=== PATIENT | female | born 1985 | race Caucasian/White ===

== ENCOUNTER → 2018-08-06 10:30 | Outpatient (CLI) | payer OTHER, SELFPAY ==
[2018-08-12 13:33] LABS: HPV Reflexed? NOT INDICATED
== END ==
PROVIDERS: Family Provider Internal Medicine; PCP Internal Medicine; Visit Provider Obstetrics & Gynecology
DX: Z12.4 Encounter for screening for malignant neoplasm of cervix (principal)
CPT/HCPCS: 87624; 88175; G0145

== ENCOUNTER → 2018-12-10 06:47 | Outpatient (CLI) | payer OTHER, SELFPAY ==
[2017-09-03 11:11] VITALS: BMI 20.9
[2018-12-10 07:58] LABS: hCG Titer Quant., Serum 1518 mIU/mL (<9 non-preg)
== END ==
PROVIDERS: Family Provider Internal Medicine; PCP Internal Medicine
DX: Z32.00 Encounter for pregnancy test, result unknown (principal)
CPT/HCPCS: 36415; 84702

== ENCOUNTER → 2018-12-17 11:09 | Outpatient (CLI) | payer OTHER, SELFPAY ==
[2018-12-17 12:47] LABS: hCG Titer Quant., Serum 11967 mIU/mL (<9 non-preg)
== END ==
PROVIDERS: Family Provider Internal Medicine; PCP Internal Medicine
DX: Z32.00 Encounter for pregnancy test, result unknown (principal)
CPT/HCPCS: 36415; 84702

== ENCOUNTER → 2018-12-24 14:58 | Outpatient (CLI) | payer OTHER, SELFPAY ==
[2017-09-03 11:11] VITALS: BMI 20.9
[2018-12-24 17:22] LABS: Chlamydia Trachomatis by PCR Negative (Negative); Neisserai gonorrhoeae by PCR Negative (Negative); Probe Check PASS; Sample Adequacy Control PASS; Specimen Processing Control PASS
== END ==
PROVIDERS: Visit Provider Obstetrics & Gynecology
DX: Z11.3 Encounter for screening for infections with a predominantly sexual mode of transmission (principal)
CPT/HCPCS: 87491; 87591

== ENCOUNTER → 2019-01-26 | Outpatient (CLI) | payer OTHER, SELFPAY ==
--- NOTE | 2019-01-26 15:54 | US_ITS ---
STUDY: FIRST TRIMESTER OBSTETRICAL ULTRASOUND REASON FOR EXAM: Female, 33 years old. Dating LMP: 11/07/2018 TECHNIQUE: Transabdominal TECHNICAL QUALITY: Adequate. PRIOR ULTRASOUND: None. FINDINGS: There is visualization of a single gestational sac in a normal intrauterine position. The gestational sac shape is within normal limits. There is a visualized yolk sac. The yolk sac measures 6 mm. There is visualization of the placenta. There is visualization of a live embryo. The crown-rump length (CRL) measures 5.3 cm, indicating an estimated gestational age (EGA) of 12 weeks, 0 days. There is demonstrated cardiac activity with a heart rate of 156 bpm. The estimated gestation age (EGA) by LMP is 11 weeks, 3 days. The estimated date of delivery (DOROTHEA) by LMP is 08/14/2019. The estimated gestation age (EGA) by US is 12 weeks, 0 days. The estimated date of delivery (DOROTHEA) by US is 08/10/2019. The uterus measures 10.9 x 9.4 x 9.3 cm. There is no demonstrated uterine fibroid. The cervix is closed. The right ovary is not seen. The left ovary measures 2.9 x 2.3 x 1.5 cm. There is no left ovarian cyst. There is no visualized left adnexal mass or complex lesion. There is no fluid in the cul de sac. Posterior and inferior subchorionic hemorrhage measuring approximately 3 x 2 cm. US/Init OB < 14Wks US IMPRESSION: Intrauterine gestation with sonographic age of 12 weeks 0 days. Cervix is closed. Positive cardiac activity. Posterior and inferior subchorionic hemorrhage measuring approximately 3 x 2 cm. Electronically Signed: Ayaz Keller MD at 11:27 EDT Tel , Service support ,
[2019-01-26 16:34] LABS: Color, Urine Yellow (Yellow); Glucose, Dipstick 100 mg/dl (Normal); Ketone-Dipstick 5 mg/dl (Negative); Leukocyte Esterase-Dipstick 25 /ul (Negative); Nitrite-Dipstick Negative (Negative); Occult Blood-Urine 10 /ul (Negative); Protein-Dipstick 15 mg/dl (Negative); Urine Bilirubin Dipstick Negative (Negative); Urine Clarity Clear (Clear); Urine Urobilinogen Normal (Normal)
[2019-01-26 16:38] LABS: Absolute Lymphocyte Count 1.59 X10^3/ul (0.83-4.51); Absolute Neutrophil Count 7.1 X10^3/uL (2.0-7.7); Basophil# 0.05 X10^3/uL; Basophil% 0.5 % (0-1); Eosinophil# 0.17 X10^3/uL; Eosinophils% 1.8 % (0-5); Hematocrit 40.1 % (37-47); Lymphocyte # 1.59 X10^3/ul (4.0); Lymphocyte % 16.7 % (19-41); Mean Corp Hgb Conc 32.4 g/gl (32-36); Mean Corpuscular Hgb 29.5 pg (27.0-32.0); Mean Corpuscular Volume 90.9 fL (81-99); Monocyte# 0.59 X10^3/uL; Monocyte% 6.2 % (0-10); Neutrophil # 7.11 X10^3/uL (2.7-7.7); Neutrophil % 74.6 % (47-70); Platelet Count 335 K/mm3 (150-450); RBC Distribution Width CV 14.6 % (11.6-14.6); RBC Distribution Width SD 48.6 fl (35.1-43.9); Red Blood Count 4.41 M/mm3 (4.2-5.4); White Blood Count 9.5 K/mm3 (4.4-11.0)
[2019-01-26 16:45] LABS: POSITIVE COUNT NO; POSITIVE DIFFERENTIAL NO; POSITIVE MORPHOLOGY NO
[2019-01-26 16:48] LABS: Thyroid Stim Hormone (TSH) 0.11 uIU/mL (0.358-3.74)
[2019-01-26 16:56] LABS: Amphetamine Urine VISTA NEGATIVE (<1000 ng/mL); Barbiturate Urine VISTA NEGATIVE (< 200 ng/mL); Benzodiazepine Urine VISTA NEGATIVE (< 200 ng/mL); Cocaine Urine VISTA NEGATIVE (< 300 ng/mL); Ecstacy Urine VISTA NEGATIVE (< 500 ng/mL); Methadone Urine VISTA NEGATIVE (< 300 ng/mL); PCP Urine VISTA NEGATIVE (< 25 ng/mL); THC Urine VISTA NEGATIVE (< 50 ng/mL); Vista UDS pH Range 5
[2019-01-26 17:29] LABS: HIV - WCH Non-Reactive (Nonreactive); Rubella IgG 188.9 IU/mL
[2019-01-28 11:09] LABS: HEPATITIS B SURFACE AG Negative (Negative); Hep C Antibodies <0.1 s/co ratio (0.0-0.9)
[2019-01-30 02:51] LABS: Prenatal RPR NONREACTIVE (NONREACTIVE)
== END | disposition home or self-care (01) ==
PROVIDERS: Family Provider Internal Medicine; PCP Internal Medicine; Referring Provider Obstetrics & Gynecology; Visit Provider Obstetrics & Gynecology
DX: Z34.81 Encounter for supervision of other normal pregnancy, first trimester (principal)
CPT/HCPCS: 36415; 76801; 80307; 81002; 84443; 85025; 86703; 86762; 86803; 87340

== ENCOUNTER → 2019-03-25 | Outpatient (CLI) | payer OTHER, SELFPAY ==
--- NOTE | 2019-03-25 15:03 | US_ITS ---
STUDY: SECOND AND THIRD TRIMESTER OBSTETRICAL ULTRASOUND REASON FOR EXAM: Female, 34 years old. LMP: TECHNIQUE: TECHNICAL QUALITY: Adequate. PRIOR ULTRASOUND: None. FINDINGS: There is a single intrauterine fetus. The fetus is in a cephalic presentation. There is demonstrated cardiac activity with a heart rate of bpm. There is a normal amniotic fluid volume. The largest amniotic fluid pocket measures cm. The amniotic fluid index (LOLLY) is cm. The placenta is fundal in location. Multiple placental venous lakes are noted. A large venous andrew versus subchorionic placental cyst is noted superiorly measuring 3.0 x 2.9 x 5.2 cm. A similar finding is present inferiorly measuring 5 x 4.3 cm. There are Grade 0 placental changes. The cervix measures 3.6 cm in length. The bilateral adnexal regions are normal. BIOMETRY: BPD: 4.7 cm: 20 weeks, 2 days HC: 17.8: 20 weeks, 2 days AC: 15.4: 20 weeks, 5 days FL: 3.2: 20 weeks, 0 days CI: 80% FL/BPD: 68% FL/HC: FL/AC: 21% HC/AC: age by current US: 20 weeks, 3 days. DOROTHEA by current US: 08/09/2019. Estimated weight: 346 grams, +/- 50 grams, 79 %. age by prior US: 20 weeks, 2 days. DOROTHEA by prior US: 08/10/2019. Age by LMP: 19 weeks, 5 days. DOROTHEA by LMP: 08/14/2019. ANATOMY: Gender: Male Cranium: Normal lateral ventricles. Normal choroid plexus. Normal cerebellum. Normal cisterna magna. Normal face, nose and lips. Chest: Normal 4-chamber heart. Abdomen/Pelvis: Normal diaphragm. Normal stomach. Normal abdominal wall. Normal cord insertion. Normal 3 vessel cord. Normal kidneys. Normal bladder. Spine: Normal cervical spine. Normal thoracic spine. Normal lumbar spine. Normal sacrum. Extremities: Normal bilateral upper extremities. Normal bilateral lower extremities. US/OB Anatomy Scan IMPRESSION: Intrauterine gestation with sonographic age of 20 weeks 3 days. Cervix is closed. Positive cardiac activity. Normal amniotic fluid volume. Multiple placental venous lakes are noted. A large venous andrew versus subchorionic placental cyst is noted superiorly measuring 3.0 x 2.9 x 5.2 cm. A similar finding is present inferiorly measuring 5 x 4.3 cm. Electronically Signed: Ayaz Keller MD at 8:16 EDT Tel , Service support ,
== END | disposition home or self-care (01) ==
PROVIDERS: Family Provider Internal Medicine; PCP Internal Medicine; Referring Provider Obstetrics & Gynecology; Visit Provider Obstetrics & Gynecology
DX: Z34.82 Encounter for supervision of other normal pregnancy, second trimester (principal)
CPT/HCPCS: 76805

== ENCOUNTER → 2019-05-21 | Outpatient (CLI) | payer OTHER, SELFPAY ==
[2019-05-21 13:46] LABS: Glucose Challenge Gest 1H 50g 111 mg/dL (70-140)
[2019-05-21 13:48] LABS: Hematocrit 31.4 % (37-47); Hemoglobin 10.1 g/dL (12.0-15.0); Mean Corp Hgb Conc 32.2 g/dL (32-36); Mean Corpuscular Hgb 28.9 pg (27.0-32.0); Mean Platelet Vol. 9.2 fl (6.2-12.0); Platelet Count 327 K/mm3 (150-450); RBC Distribution Width CV 13.8 % (11.6-14.6); RBC Distribution Width SD 45.1 fl (35.1-43.9); Red Blood Count 3.49 M/mm3 (4.2-5.4); White Blood Count 11.3 K/mm3 (4.4-11.0)
== END | disposition home or self-care (01) ==
LOC: LABSPEC 11:06 → WOBLAB 11:07
PROVIDERS: Visit Provider Obstetrics & Gynecology
DX: Z34.83 Encounter for supervision of other normal pregnancy, third trimester (principal)
CPT/HCPCS: 36415; 82950; 85027

== ENCOUNTER → 2019-06-18 | Outpatient (CLI) | payer OTHER, SELFPAY ==
[2019-06-18 11:05] LABS: Free T3 2.6 pg/mL (2.18-3.98); T4 Free Direct 0.92 ng/dL (0.76-1.46); Thyroid Stim Hormone (TSH) 1.07 uIU/mL (0.358-3.74)
== END | disposition home or self-care (01) ==
LOC: WOBLAB 09:10
PROVIDERS: Visit Provider Obstetrics & Gynecology
DX: Z34.83 Encounter for supervision of other normal pregnancy, third trimester (principal); Z86.39 Personal history of other endocrine, nutritional and metabolic disease
CPT/HCPCS: 36415; 84439; 84443; 84481

== ENCOUNTER 2019-08-07 05:35 | Inpatient (IN) | payer OTHER, SELFPAY ==
[2017-09-03 11:11] VITALS: BMI 20.9
--- NOTE | 2019-08-03 18:30 | HP.PCM_ITS ---
History and Physical Date of Admission: 08/07/19 OB HISTORY AND PHYSICAL EXAMINATION History of this : 34 yo female Ab0 with EDC 08/14/2019 by 6 weeks 5 days Ultrasound, presents to Labor and Delivery for planned repeat C section at 39 wk EGA. care remarkable for - 1.) Anemic Ferrous sulfate RX given. 2.) Prior CS, --plan repeat 3.) Wants cf-DNA 4.) Pt born with bilateral clubbed feet 5.) IVF . On estrace and progesterone injections through 10 wk EGA. PAST HISTORY: Breast/Ovarian/Colon Cancers - Maternal Grandmother had Breast Cancer approximately age 60-70 and Paternal Grandmother had Colon Cancer approximately age 60-70 Infections - Chicken pox and as child Illnesses - depression, anorexia - age 15, ADD and (d/c Adderall after IVF) Accidents - no injuries of consequence History of Abnormal PAPS - Denies Hospitalizations - see surgery SURGICAL HISTORY: 1. 09/02/2017 [facility] and A 2. Lasic 2007 3. IVF 2015 4. 02/09/2017 Alphonso Lugo MD and Dr Rafiq Wilcox MENSTRUAL HISTORY: LMP Known?- DefiniteAmount/Duration - 4-5 DAYS, Regularity - Regular, Frequency - 28 days, LMP - 11/04/18, Age Onset Menarche - 13 PAST PREGNANCIES: Total Pregnancies - 2; Full Term Pregnancies - 1; Premature - 0; Abortions, Induced - 0; Abortions, Spontaneous - 0; Ectopics - 0; Multiple Births - 0; Living Children - 1 FAMILY HISTORY: MaternalGrandparent - Ischemic heart disease; MaternalGrandparent - Age 63, Carcinoma of breast; PaternalGrandparent - Ischemic heart disease; SOCIAL HISTORY: Alcohol Use - denies drinking Smoking - denies smoking Diet - vegetarian and since 2000 Lifestyle - moderate stress lifestyle and Exercise - active Employer - 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 Illicit Drug Use - denies use of street drugs Sexual Activity - Residence - lives with Hours Worked - 40 hours per week Spouse-Sig Other Name - Bakari Jason Spouse-Sig Other Occupation - Speech Language Pathologist - [employer] Spouse-Sig Other Phone No - [facility] [id number], Children Name(s) - Josr Villegas ('17) Control - Allergies: Vicodin Medications: During - + DHA 28 mg iron- 975 mcg-200 mg combo pack; Zofran 8 mg tablet; ferrous sulfate 325 mg (65 mg iron) tablet and estrace 2 mg tabs three daily; weekly Progesterone injections through 10 wks Review of Systems: Non-contributory PHYSICAL EXAMINATION General Appearance: 34 yo female in no acute distress Vital Signs: AF, VSS Lungs: regular rate and rhythm. Breasts: deferred Abdomen: gravid Pelvis: deferred. Presentation: cephalic Size: AGA Movement: present Heart: present Impression /Plan: Intrauterine . 39 wk EGA with hx of prior C section presents for planned repeat C section. Admit for delivery by C section. Declined bilateral tubal ligation.
[2019-08-07] VITALS (24 sets, daily range): BP systolic 102–146; BP diastolic 54–79; PULSE 80–105; RESP 12–20; TEMP 36.6–37.7; O2SAT 93–99; BMI 28.8
[2019-08-07] MEDS: Lactated Ringers 1,000 ML 999 ML IV (05:50)
[2019-08-07 06:05] LABS: Absolute Lymphocyte Count 2.37 X10^3/uL (0.83-4.51); Absolute Neutrophil Count 8.8 X10^3/uL (2.0-7.7); Basophil# 0.08 X10^3/uL; Basophil% 0.6 % (0-1); Eosinophils% 1.6 % (0-5); Hematocrit 31.8 % (37-47); Hemoglobin 10.2 g/dL (12.0-15.0); Lymphocyte # 2.37 X10^3/ul (4.0); Lymphocyte % 18.9 % (19-41); Mean Corp Hgb Conc 32.1 g/dL (32-36); Mean Corpuscular Hgb 28.1 pg (27.0-32.0); Mean Corpuscular Volume 87.6 fL (81-99); Mean Platelet Vol. 9.6 fl (6.2-12.0); Monocyte# 0.95 X10^3/uL; Monocyte% 7.6 % (0-10); NRBC Flagged by Analyzer 0 % (0-5); Neutrophil # 8.83 X10^3/uL (2.7-7.7); Neutrophil % 70.4 % (47-70); Platelet Count 303 K/mm3 (150-450); RBC Distribution Width CV 15.7 % (11.6-14.6); RBC Distribution Width SD 50.4 fl (35.1-43.9); Red Blood Count 3.63 M/mm3 (4.2-5.4); White Blood Count 12.5 K/mm3 (4.4-11.0)
[2019-08-07] MEDS: Lactated Ringers 1,000 ML 150 ML IV (06:51)
[2019-08-07] MEDS: Sodium Citrate/Citric Acid 30 ML UDC PO (07:21)
--- NOTE | 2019-08-07 07:24 | PCM.DCCSEC ---
Discharge Diet: No Restrictions Discharge Activity: May Shower, May Take a Tub Bath Return to work on:: 10/05/19 May resume sexual activity in: 4-6 weeks Lifting Restrictions: 20 pounds Additional Activity Instructions:: Nothing in the vagina for 4-6 weeks. You may return to work/school in 6 weeks. Change Dressing in (Days):: 14 Remove Dressing in (days):: 14 Additional Instructions: If you experience any of the following, contact your healthcare provider. Bleeding that soaks a pad every hour for 2 hours Fever 100.4 or higher Unrelieved incision or abdominal pain Swelling, redness, discharge or bleeding from your incision Problems urinating (including inability to urinate or burning while urinating). Visual changes Severe headache Flu-like symptoms Pain or redness in one of both of your breasts Pain, warmth, tenderness or swelling in your legs, especially the calf area Frequent nausea and vomiting Symptoms of depression or anxiety If you experience any of the following, call 911 or go to the nearest Emergency Room. Chest pain Problems breathing Seizure activity Partial or complete paralysis of a body part, slurred speech, weakness or drooping of the face, or a sudden inability to walk or hold your balance Allergies/Adverse Reactions: Allergies cefaclor [From Ceclor] Allergy (Verified 08/28/17 10:13) Rash hydrocodone [From Vicodin] Adverse Reaction (Verified 08/28/17 10:13) Nausea promethazine [From Phenergan] Adverse Reaction (Verified 08/28/17 10:23) RESTLESS LEGS TIDE DETERGENT Allergy (Uncoded 08/28/17 10:13) Shortness of breath anaphylaxis Medications to take at Discharge Docusate Sodium [Colace] 100 mg PO BID #30 cap 08/07/19 Ibuprofen [Ibu] 600 mg PO Q6H PRN PRN #30 tab 08/07/19 Iron 65 mg PO BID 08/07/19 Oxycodone [Oxyir] 5 mg PO Q6H PRN PRN 4 Days #15 tablet 08/07/19 Pnv No.103/Folic/Om3s/Fish Oil [ Gummies] 2 gum PO BID 08/07/19 The following prescriptions were given: Docusate Sodium [Colace] 100 mg PO BID #30 cap Transmission Status: Pending to [facility] Ibuprofen [Ibu] 600 mg PO Q6H PRN PRN #30 tab PRN Reason: Pain Score 4-5/10 Transmission Status: Pending to [facility] Oxycodone [Oxyir] 5 mg PO Q6H PRN PRN 4 Days #15 tablet PRN Reason: Mod-Severe Pain (4-10/10) Transmission Status: Sent to [facility] Follow-Up: Call to make an appointment with your doctor for an incision check in 1-2 weeks. You will also need a 6 week post- follow up appointment. Test results from this visit will be discussed in further detail at your follow-up appointment, if applicable. Please Follow Up With: Devin Lundy MD - [phone] When: Call to make an appointment for an incision check in 2 weeks.
[2019-08-07] MEDS: Cefazolin 2 GM in 0.9% Normal Saline 100 ML IV (07:29)
--- NOTE | 2019-08-07 08:29 | PCM.OPRPT ---
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 planned repeat C section Post-Operative Diagnosis: same Indications: 39 wk prior C/S Indications for : Repeat Elective Description of Procedure: Findings: At amniotomy, clear fluid was noted. Hall viable male in vertex presentation. Apgars 9/9, Baby weight: 8# 3.5 oz There was a normal appearing uterus, fallopian tubes and ovaries bilaterally. There were minimal filmy adhesions between the bladder and lower uterine segment, and between uterus and posterior surface of anterior abdominal wall. PATH: Routine cord blood for typing collected. Narrative account: After the risks, benefits and alternatives of the procedure were reviewed with the patient, informed consent was obtained. The patient was taken to the Operating room with an IV running, and placed in a seated position on the operating table for placement of the spinal. Once the spinal had been administered, she was briefly frog-legged for Hamlin catheter placement, and then repositioned to dorsal supine position with leftward displacement of the uterus, and prepped and draped in the usual sterile fashion. Once the spinal was deemed adequate, a Pfannenstiel skin incision was created using the knife (through the prior skin incision scar). The incision was carried down to the rectus fascia using the knife. The fascia was nicked in the midline. The fascial incision was extended bilaterally using curved Garvin scissors. The superior aspect of the fascial incision was grasped with Dominga clamps and tented up and the underlying rectus abdominal muscles were dissected free. In a similar manner, the inferior aspect of the facial incision was grasped with Dominga clamps tented up and the underlying rectus abdominal muscles were dissected free. The rectus abdominis muscles were in the midline and the peritoneum was identified and entered by blunt and sharp dissection high in the incision. The peritoneum was stretched laterally and a bladder blade was inserted. The uterine incision was then created using Metzenbaum scissors. The operators fingertips were used to extend the uterine incision by blunt dissection in a caudad- cephalad orientation . Clear fluid was noted at amniotomy. The vertex was then delivered atraumatically through the incision. The OP and nares were bulb suctioned on the abdomen. The shoulders delivered easily . The cord clamped x two and cut. And the infant was handed off to the nurse awaiting delivery after briefly showing him to his parents. The baby had a spontaneous, vigorous cry. The placenta was then delivered. The uterus was exteriorized and cleared of clots and debris . The uterine incision was repaired with 1 Vicryl in a running locked fashion. A second imbricating layer was then placed, using 1 Monocryl in running nonlocked fashion. Bovie cautery was used to treat any bleeding areas . Excellent hemostasis was noted. At this point the uterus was returned to the abdominal cavity. The gutters were cleared of clots and debris and the incision at the uterus was inspected. Bovie cautery was used to take down some of the filmy adhesions present. Excellent hemostasis was noted. The peritoneal edges and rectus abdominis muscles were reapproximated in the midline with a series of vertical mattress stitches of 1 Vicryl. Excellent hemostasis was noted at the subfascial space The fascia was closed in a running nonlocked fashion with a Stratofix. The Subcutaneous fatty tissue was Bovie cauterized as needed for hemostasis. This layer was tacked together with interrupted sutures of 3-0 Vicryl. The skin edges were closed in a Subcuticular stitch of 4-0 Monocryl. The incision was cleansed. Cavilon, Steristrips, and Mepilex dressing were applied to the skin . The patient was then transferred to the recovery room bed in stable condition after tolerating the procedure well. Sponge, lap, needle and instrument counts correct times two. Medications given preop and intraoperatively included: Ancef 2 gm given IV conservation technician to the operating room. The patient also received Pitocin given IV after cord clamp, and Toradol 30 mg IV times one. Methergine 0.2 mg IM times one for inc vaginal bleeding noted in OR after surgery. For a complete listing of medications given preop and intraoperatively, please see the anesthesia record. Amniotic Membrane Rupture Type: Artificial Amniotic Fluid Description: Clear Placenta Disposition: [facility] Drain: Hamlin to straight drain Fluids Replaced: LR Cord Entanglement: None Cord Vessel Description: 3 Vessels Esitmated Blood Loss (ml): 800 Gender: Male - 8# 3.5 oz. (1 minute): 9 (5 minute): 9 Antibiotic Given: Ancef 2 grams IV x1 Pt instructed on risks of surgery: Bleeding, Anesthesia Risks, Infection Complications: None - Admit VTE Documentation VTE Present on Admission: No VTE Mechan Device Prophylaxis: SCD's VTE Pharm Prophylaxis ordered?: No
[2019-08-07] MEDS: Methylergonovine 0.2 MG/ML Ampul IM (08:35)
[2019-08-07] MEDS: Oxytocin 30 units/NS 500 ml 30 UNITS/500 ML IV.SOLN 167 UNITS IV (08:46)
[2019-08-07 09:00] LABS: Absolute Lymphocyte Count 2.21 X10^3/uL (0.83-4.51); Absolute Neutrophil Count 8.3 X10^3/uL (2.0-7.7); Basophil# 0.06 X10^3/uL; Basophil% 0.5 % (0-1); Eosinophil# 0.17 X10^3/uL; Eosinophils% 1.4 % (0-5); Hematocrit 29.5 % (37-47); Hemoglobin 9.2 g/dL (12.0-15.0); Lymphocyte # 2.21 X10^3/ul (4.0); Lymphocyte % 18.5 % (19-41); Mean Corp Hgb Conc 31.2 g/dL (32-36); Mean Corpuscular Volume 89.9 fL (81-99); Mean Platelet Vol. 9.4 fl (6.2-12.0); Monocyte# 1.03 X10^3/uL; Monocyte% 8.6 % (0-10); NRBC Flagged by Analyzer 0 % (0-5); Neutrophil # 8.32 X10^3/uL (2.7-7.7); Neutrophil % 69.8 % (47-70); Platelet Count 281 K/mm3 (150-450); RBC Distribution Width CV 15.9 % (11.6-14.6); RBC Distribution Width SD 52.7 fl (35.1-43.9); Red Blood Count 3.28 M/mm3 (4.2-5.4); White Blood Count 11.9 K/mm3 (4.4-11.0)
[2019-08-07] MEDS: Lactated Ringers 1,000 ML 100 ML IV ×2 (09:05→10:53)
[2019-08-07 09:10] LABS: Partial Thromboplast Time 27.1 Seconds (24.1-36.2); Prothrombin Time (Protime)PT. 13.2 SECONDS (11.7-14.9)
[2019-08-07] MEDS: proCHLORPERazine 10 MG/2 ML Vial IV (09:22)
[2019-08-07] MEDS: Acetaminophen 500 MG Tablet 1000 MG PO (10:27)
[2019-08-07] MEDS: 0.9% Saline Lock 10 ML Syringe IV ×2 (10:56→20:48)
--- NOTE | 2019-08-07 12:38 | PCM.PN.BLA ---
Progress Note Called back to OR approx 8:40 am d/t pt with inc blood PV prior to transfer out of OR Exam under spinal anesthesia. Clot expressed from lower uterine segment, cervix dilated to approx 3 cm. Blood expressed also from upper vagina. DX: increased vaginal bleeding after C/S due to lower uterine segment atony and retained clot expressed -CBC, PT/PTT/ INR Fibrinogen -Cytotec 800 mcg SD placed times one dose. -Observe bleeding. -Repeat CBC in approx 6 hr. STROKE Vital Signs/Narrative: Vital Signs Temp Pulse Resp BP Pulse Ox 08/07/19 12:17 98.6 F 91 18 110/70 99 08/07/19 11:17 16 95 08/07/19 11:14 98.8 F 92 16 106/66 95 08/07/19 11:00 98 16 106/59 L 96 08/07/19 10:45 105 H 18 107/65 95 08/07/19 10:36 20 H 96 08/07/19 10:30 105 H 20 H 111/65 93 08/07/19 10:16 93 20 H 112/65 97 08/07/19 10:00 89 12 102/68 96 08/07/19 09:45 99.8 F H 91 12 108/64 96 08/07/19 09:36 18 96 08/07/19 09:30 93 20 H 146/54 H 96 08/07/19 09:15 98 18 96 08/07/19 09:02 98.7 F 103 H 20 H 110/79 96
[2019-08-07 14:24] LABS: Hematocrit 26.4 % (37-47); Hemoglobin 8.4 g/dL (12.0-15.0); Mean Corp Hgb Conc 31.8 g/dL (32-36); Mean Corpuscular Hgb 28.1 pg (27.0-32.0); Mean Corpuscular Volume 88.3 fL (81-99); Mean Platelet Vol. 9.4 fl (6.2-12.0); Platelet Count 238 K/mm3 (150-450); RBC Distribution Width CV 15.7 % (11.6-14.6); Red Blood Count 2.99 M/mm3 (4.2-5.4)
[2019-08-07] MEDS: Ketorolac 30 MG/ML Syringe IV ×2 (15:26→20:26)
--- NOTE | 2019-08-07 18:03 | NURSING ---
In with pt. in room at ~ 1430 while pt. holding infant while FOB out of room to grab some lunch. Was talking with pt. about hx. of pp depression, and pt. reports that she did have a hx. of pp depression with last baby. Reports that it was while she was attempting to breastfeed. Had reported about that she was either pumping or nursing all the time and not really getting anythin and reports this was very, very hard on her. Reports that at this time, she had thoughts of my daughter and the microwave and one time, when my dog was barking and I was at the diswasher, I thought about stabbing it. Reports that she was able to rationalize that this was incorrect thought. Discussed with pt. that this could be signs of pp psychosis, and that she needed to get help immediately if she started having any of these thoughts this time around. Pt. reports that when she had appt. with OB last time, that I was starting to feel a lot better and starting to turn around and was not started on any medications. Pt. reports that was very supportive and did really good at not really leaving me alone much. Also reports that she felt it was really related to , and that she stopped . Reports that she decided that it would be better for everyone if she just bottle-fed this time, and that is her feeding method of choice. Informed pt. that SW would be in to see pt. and would talk with pt. to make sure she knew of resources available if she felt she was getting depressed again. Pt. open to this. Discussed this with TAN Moody, and she plans to pass on info to SW, and will see Saturday if pt. still here.
[2019-08-07] MEDS: Ondansetron ODT 4 MG Tablet PO (18:23)
[2019-08-08] VITALS (8 sets, daily range): BP systolic 96–105; BP diastolic 55–62; PULSE 84–105; RESP 16–18; TEMP 36.6–37.4; O2SAT 95–99
[2019-08-08] MEDS: Ketorolac 30 MG/ML Syringe IV ×4 (02:38→20:19)
[2019-08-08] MEDS: 0.9% Saline Lock 10 ML Syringe IV ×4 (02:39→20:19)
[2019-08-08] MEDS: Ondansetron ODT 4 MG Tablet PO (02:47)
[2019-08-08 05:59] LABS: Hematocrit 23.9 % (37-47); Hemoglobin 7.6 g/dL (12.0-15.0); Mean Corp Hgb Conc 31.8 g/dL (32-36); Mean Corpuscular Hgb 28.3 pg (27.0-32.0); Mean Corpuscular Volume 88.8 fL (81-99); Mean Platelet Vol. 9.2 fl (6.2-12.0); Platelet Count 245 K/mm3 (150-450); RBC Distribution Width CV 15.7 % (11.6-14.6); RBC Distribution Width SD 50.9 fl (35.1-43.9); Red Blood Count 2.69 M/mm3 (4.2-5.4)
[2019-08-08] MEDS: Ferrous Gluconate 324 MG Tablet PO ×2 (08:44→17:05)
--- NOTE | 2019-08-08 09:41 | PN.OBGYN_ITS ---
Subjective: POD#1 Repeat C/S Immediate postop hemorrhage d/t uterine atony, lower uterine segment Doing well. Up walking and denies dizziness. Uterus sore. no concerns voiced otherwise. Bottle feeding. - Physical Exam Vitals/I&O's: Vital Signs Temp Pulse Resp BP Pulse Ox 99.4 F H 84 16 98/55 L 96 08/08/19 07:37 08/08/19 07:38 08/08/19 07:38 08/08/19 07:37 08/08/19 07:38 Oxygen Delivery Method Room Air Weight: 62.709 kg Body Mass Index (BMI) 28.8 Intake and Output for Last 24 Hours 08/06/19 08/07/19 08/08/19 23:59 23:59 23:59 Intake Total 5358.34 / 5858.34 500 / 500 Output Total 2025 / 5 300 / 300 Balance 3333.34 / 3533.34 200 / 200 General: Alert, Oriented x3, Cooperative, No apparent distress HEENT: Atraumatic, EOMI Neck: Supple Abdomen: Soft - Softly distended. Fundus firm and minimally tender 2 cm inferior to umbilicus Skin: Incision - Mepilex CDI Neurological: Cranial nerves II-XII grossly intact Psych/Mental Status: Normal Affect Laboratory Results 08/07/19 14:15: WBC 17.0 H, RBC 2.99 L, Hgb 8.4 L, Hct 26.4 L, MCV 88.3, MCH 28.1, MCHC 31.8 L, RDW Std Deviation 51.0 H, RDW Coeff of Kendall 15.7 H, Plt Count 238, MPV 9.4 08/08/19 05:48: WBC 15.0 H, RBC 2.69 L, Hgb 7.6 L, Hct 23.9 L, MCV 88.8, MCH 28.3, MCHC 31.8 L, RDW Std Deviation 50.9 H, RDW Coeff of Kendall 15.7 H, Plt Count 245, MPV 9.2 Current Medications Acetaminophen (Tylenol) 1,000 mg PO Q8H PRN PRN Reason: Pain Score 1-3/10 Last Admin: 08/07/19 10:27 Dose: 1,000 mg Documented by: Bisacodyl (Dulcolax) 10 mg RECTAL UD PRN PRN Reason: If no BM Diphenhydramine HCl (Benadryl) 25 mg PO Q6H PRN PRN PRN Reason: ITCHING Stop: 08/08/19 18:10 Ferrous Gluconate (Ferrous Gluconate) 324 mg PO BIDCM [facility] Last Admin: 08/08/19 08:44 Dose: 324 mg Documented by: Hydrocortisone (Hytone) 1 applic TOPICAL TID PRN PRN; Protocol PRN Reason: Discomfort Naloxone HCl 4 mg/ Dextrose 504 mls @ 0 mls/hr IV .Q0M PRN; Protocol PRN Reason: Respiratory depression Ibuprofen (Motrin) 600 mg PO Q6H PRN PRN PRN Reason: Pain Score 1-3/10 Ketorolac Tromethamine (Toradol) 30 mg IV Q6H [facility] Stop: 08/09/19 08:31 Last Admin: 08/08/19 08:44 Dose: 30 mg Documented by: Methylergonovine Maleate (Methergine) 0.2 mg IM X1 PRN PRN Reason: Uterine Atony Last Admin: 08/07/19 08:35 Dose: 0.2 mg Documented by: Nalbuphine HCl (Nubain) 5 mg IV Q3H PRN PRN PRN Reason: ITCHING Stop: 08/08/19 18:10 Naloxone HCl (Narcan) 0.02 mg IV Q1M PRN PRN Reason: RR <10 and pt unresponsive Ondansetron HCl (Zofran) 4 mg IV Q4H PRN PRN PRN Reason: Nausea Ondansetron HCl (Zofran Odt) 4 mg PO Q4H PRN PRN PRN Reason: ITCHING Stop: 08/08/19 18:10 Last Admin: 08/08/19 02:47 Dose: 4 mg Documented by: Oxycodone HCl (Oxyir) 5 - 10 mg PO Q4H PRN PRN PRN Reason: Pain Score 4-10/10 Prochlorperazine Edisylate (Compazine Iv) 10 mg IV Q6H PRN PRN PRN Reason: NAUSEA Last Admin: 08/07/19 09:22 Dose: 10 mg Documented by: Senna/Docusate Sodium (Senokot-S, Honey-Colace) 0 tablet PO DAILY PRN PRN Reason: Constipation Simethicone (Mylicon) 80 mg PO PCHS PRN PRN Reason: Indigestion/stomach pain Sodium Chloride () 5 - 15 ml IV UD PRN PRN Reason: SALINE FLUSH Last Admin: 08/08/19 08:44 Dose: 10 ml Documented by: Zolpidem Tartrate (Ambien (Generic)) 5 mg ORAL QHS PRN PRN PRN Reason: Insomnia Medical Necessity - Tobacco Use Smoking Status: Never smoker Assessment/Plan All Active Problems Arrest of descent, delivered, current hospitalization (Acute) POD#1 Repeat C/S at 39 wks immediate postop hemorrhage due to uterine atony Stable postop. Inc diet and activity as tolerated. D/C eagle for voiding trial. S/L IV for continued toradol Acute blood loss anemia due to atony of lower uterine segment. Superimposed on iron deficiency anemia of -- Repeat CBC at approx noon -- Ferrous gluconate 325 mg po bid. Doing well. Continue routine care.
[2019-08-08 12:20] LABS: Hematocrit 22.7 % (37-47); Hemoglobin 7.3 g/dL (12.0-15.0); Mean Corp Hgb Conc 32.2 g/dL (32-36); Mean Corpuscular Hgb 28.3 pg (27.0-32.0); Mean Platelet Vol. 9.5 fl (6.2-12.0); Platelet Count 278 K/mm3 (150-450); RBC Distribution Width CV 15.9 % (11.6-14.6); Red Blood Count 2.58 M/mm3 (4.2-5.4); White Blood Count 14.3 K/mm3 (4.4-11.0)
[2019-08-08] MEDS: Acetaminophen 500 MG Tablet 1000 MG PO (12:21)
[2019-08-08] MEDS: Senna/Docusate Sodium 1 Tablet PO (14:52)
--- NOTE | 2019-08-08 15:20 | CASEMGMT ---
Social Work Brief Assessment - Labor and Delivery Unit Refer documentation below for further details. Date of Referral/Notification: 08/07/19 Time of Referral: 15:54 Reason for Referral: HX OF POST DEPRESSION Date of Intervention: 08/08/19 Time of Intervention: 15:20 Informant: Medical record and mother of baby (MOB) History: MOB WITH PRIOR C SECTION 2017. MOB REPORTS HISTORY OF POST DEPRESSION WITH FIRST CHILD, NALDO. Assessment: MET WITH MOB AND FOB IN ROOM. MOB AND FOB REPORT HAVE BEEN TOGETHER SINCE 2004, SINCE 2011. MOB AND FOB ARE BOTH EMPLOYED AND STATE HAVE ALL NEEDS MET FOR BABY BOYMAXIME. DISCUSSED MOB'S PRIOR HISTORY OF POST DEPRESSION WITH FIRST CHILD, NALDO IN 2017. MOB REPORTS WOULD HAVE INTRUSIVE THOUGHTS OF WANTING TO PUT BABY IN [place]CROWAVE OR WANTING TO STAB HER DOG. MOB REPORTS NEVER ACTED ON THESE THOUGHTS AND DISCUSSED THOUGHTS WITH AND THEY INFORMED DR. FREDERICK AT CHECK UP. MOB STATES WAS NOT PRESCRIBED MEDICATION AND DID NOT FOLLOW WITH COUNSELING. MOB REPORTS WAS VERY SUPPORTIVE THROUGHOUT. MOB STATES DISCUSSED THESE PREVIOUS THOUGHTS WITH NURSES D/T CONCERNS WITH PPD AFTER THIS . DISCUSSED HOW MOB IS FEELING CURRENTLY. MOB REPORTS FEELING IN A BETTER PLACE. MOB STATES HAS CHOSEN TO BOTTLE FEED INSTEAD OF D/T STRESS AND ISSUES AFTER OF DAUGHTER, NALDO. ENCOURAGEMENT AND EMOTIONAL SUPPORT PROVIDED TO MOB. MOB AND FOB PROVIDED WITH LIST OF [facility] RESOURCES ALONG WITH INFORMATIONAL PACKET ON POST DEPRESSION. ENCOURAGED IMMEDIATE FOLLOW UP WITH PHYSICIAN/COUNSELING IF INTRUSIVE THOUGHTS BEGIN. MOB VERBALIZES UNDERSTANDING AND IS IN AGREEMENT. NO FURTHER QUESTIONS OR CONCERNS. NURSING STAFF UPDATED ON THIS WORKER'S ASSESSMENT. MOB BONDING WELL WITH BABY. FOB VERY SUPPORTIVE AND INVOLVED IN CARE OF BABY. Plan: HOME WITH RESOURCES PROVIDED. No further needs requested or indicated. -Kiki Silvestre, [employer], TUBE TEST TECHNICIAN
[2019-08-08] MEDS: oxyCODONE 5 MG Tablet PO (20:26)
[2019-08-09] VITALS: BP 110/70; PULSE 99; RESP 17
[2019-08-09] MEDS: Ketorolac 30 MG/ML Syringe IV ×2 (01:58→08:34)
[2019-08-09] MEDS: 0.9% Saline Lock 10 ML Syringe IV ×2 (01:58→08:35)
[2019-08-09] MEDS: oxyCODONE 5 MG Tablet PO ×2 (01:59→15:31)
[2019-08-09 03:27] VITALS: BP 115/66; PULSE 92; RESP 17
[2019-08-09 06:33] LABS: Absolute Lymphocyte Count 1.24 X10^3/uL (0.83-4.51); Absolute Neutrophil Count 7.8 X10^3/uL (2.0-7.7); Basophil# 0.07 X10^3/uL; Basophil% 0.7 % (0-1); Eosinophil# 0.18 X10^3/uL; Eosinophils% 1.7 % (0-5); Hematocrit 23.6 % (37-47); Hemoglobin 7.5 g/dL (12.0-15.0); Lymphocyte # 1.24 X10^3/ul (4.0); Mean Corp Hgb Conc 31.8 g/dL (32-36); Mean Corpuscular Hgb 28.1 pg (27.0-32.0); Mean Corpuscular Volume 88.4 fL (81-99); Mean Platelet Vol. 9.3 fl (6.2-12.0); Monocyte# 0.95 X10^3/uL; Monocyte% 9.2 % (0-10); NRBC Flagged by Analyzer 0 % (0-5); Neutrophil % 75.6 % (47-70); Platelet Count 302 K/mm3 (150-450); RBC Distribution Width CV 15.9 % (11.6-14.6); RBC Distribution Width SD 51.2 fl (35.1-43.9); Red Blood Count 2.67 M/mm3 (4.2-5.4); White Blood Count 10.3 K/mm3 (4.4-11.0)
--- NOTE | 2019-08-09 07:46 | PN.OBGYN_ITS ---
Subjective: POD#2 Repeat C/S at 39 wks immediate postop hemorrhage due to uterine atony Doing well. Sitting up in chair, holding baby. States would like to go home today but baby needs additional bilirubin check prior to this decision. Pain control OK. Sore. Up and walking, no c/o dizziness or weakness. - Physical Exam Vitals/I&O's: Vital Signs Temp Pulse Resp BP Pulse Ox 99.0 F 92 17 115/66 99 08/08/19 20:00 08/09/19 03:27 08/09/19 03:27 08/09/19 03:27 08/08/19 12:45 Oxygen Delivery Method Room Air Weight: 62.709 kg Body Mass Index (BMI) 28.8 Intake and Output for Last 24 Hours 08/07/19 08/08/19 08/09/19 23:59 23:59 22:59 Intake Total 5358.34 / 5858.34 500 / 500 Output Total 2025 / 2325 300 / 300 Balance 3333.34 / 3533.34 200 / 200 General: Alert, Oriented x3, Cooperative, No apparent distress HEENT: Atraumatic, EOMI Neck: Supple Abdomen: Soft - fundus minimally tender c/w postop status, at umbilicus Skin: Incision - Mepilex CDI Psych/Mental Status: Normal Affect Laboratory Results 08/08/19 12:10: WBC 14.3 H, RBC 2.58 L, Hgb 7.3 L, Hct 22.7 L, MCV 88.0, MCH 28.3, MCHC 32.2, RDW Std Deviation 51.0 H, RDW Coeff of Kendall 15.9 H, Plt Count 278, MPV 9.5 08/09/19 05:41: WBC 10.3, RBC 2.67 L, Hgb 7.5 L, Hct 23.6 L, MCV 88.4, MCH 28.1, MCHC 31.8 L, RDW Std Deviation 51.2 H, RDW Coeff of Kendall 15.9 H, Plt Count 302, MPV 9.3, Immature Gran % (Auto) 0.800, Neut % (Auto) 75.6 H, Lymph % (Auto) 12.0 L, [place] % (Auto) 9.2, Eos % (Auto) 1.7, Baso % (Auto) 0.7, Absolute Neuts (auto) 7.8 H, Absolute Lymphs (auto) 1.24, Nucleated RBC % 0 Current Medications Acetaminophen (Tylenol) 1,000 mg PO Q8H PRN PRN Reason: Pain Score 1-3/10 Last Admin: 08/08/19 12:21 Dose: 1,000 mg Documented by: Bisacodyl (Dulcolax) 10 mg RECTAL UD PRN PRN Reason: If no BM Ferrous Gluconate (Ferrous Gluconate) 324 mg PO BIDCM [facility] Last Admin: 08/08/19 17:05 Dose: 324 mg Documented by: Hydrocortisone (Hytone) 1 applic TOPICAL TID PRN PRN; Protocol PRN Reason: Discomfort Naloxone HCl 4 mg/ Dextrose 504 mls @ 0 mls/hr IV .Q0M PRN; Protocol PRN Reason: Respiratory depression Ibuprofen (Motrin) 600 mg PO Q6H PRN PRN PRN Reason: Pain Score 1-3/10 Ketorolac Tromethamine (Toradol) 30 mg IV Q6H [facility] Stop: 08/09/19 08:31 Last Admin: 08/09/19 01:58 EST Dose: 30 mg Documented by: Methylergonovine Maleate (Methergine) 0.2 mg IM X1 PRN PRN Reason: Uterine Atony Last Admin: 08/07/19 08:35 Dose: 0.2 mg Documented by: Naloxone HCl (Narcan) 0.02 mg IV Q1M PRN PRN Reason: RR <10 and pt unresponsive Ondansetron HCl (Zofran) 4 mg IV Q4H PRN PRN PRN Reason: Nausea Oxycodone HCl (Oxyir) 5 - 10 mg PO Q4H PRN PRN PRN Reason: Pain Score 4-10/10 Last Admin: 08/09/19 01:59 EST Dose: 5 mg Documented by: Prochlorperazine Edisylate (Compazine Iv) 10 mg IV Q6H PRN PRN PRN Reason: NAUSEA Last Admin: 08/07/19 09:22 Dose: 10 mg Documented by: Senna/Docusate Sodium (Senokot-S, Honey-Colace) 0 tablet PO DAILY PRN PRN Reason: Constipation Last Admin: 08/08/19 14:52 Dose: 1 tablet Documented by: Simethicone (Mylicon) 80 mg PO PCHS PRN PRN Reason: Indigestion/stomach pain Last Admin: 08/08/19 17:05 Dose: 80 mg Documented by: Sodium Chloride () 5 - 15 ml IV UD PRN PRN Reason: SALINE FLUSH Last Admin: 08/09/19 01:58 EST Dose: 10 ml Documented by: Zolpidem Tartrate (Ambien (Generic)) 5 mg ORAL QHS PRN PRN PRN Reason: Insomnia Medical Necessity - Tobacco Use Smoking Status: Never smoker Assessment/Plan POD#2 Repeat C/S at 39 wks immediate postop hemorrhage due to uterine atony Stable postop. Acute blood loss anemia due to atony of lower uterine segment. Superimposed on iron deficiency anemia of -- Repeat CBC stable from yesterday AM now 7.5 g/dl. -- Ferrous gluconate 325 mg po bid. Doing well. Continue routine care. May elect to go home later today. Picked up her RX from the pharmacy ([facility] outpt) yesterday. Will inform nursing staff if elects to go home after baby has additional bilirubin check.
[2019-08-09] MEDS: Ferrous Gluconate 324 MG Tablet PO (08:35)
[2019-08-09 08:40] VITALS: BP 96/52; PULSE 92; RESP 16; TEMP 36.6
--- NOTE | 2019-08-09 12:36 | PCM.DC.SUM ---
Discharge Date and Diagnosis Date of Admission: 08/07/19 - Repeat C/S 39 wks Date of Discharge: 08/09/19 - Same, Hospital Course and Treatment Operations: - - Planned repeat C section. Summary of Care Provided: The patient is a 34 year old female presents at 39 wk EGA for scheduled repeat C/S. Iron deficiency anemia of . Admitted to [facility] for repeat C/S Procedure performed on 08/07/19 Findings at time of procedure: busch viable male, Ap 9/9 8# 3.5 oz. Filmy adhesions between bladder and lower uterine sergment, as well as adhesioons between anterior abdominal wall and right side of uterus. Adhesiolysis performed. Immedicate postop hemorrhage noted due to atony of the lower uterine segment. Exam under spinal in OR performed and clots expressed. Cytotec 800 mcg NM times one placed. No other complications. Preoperative Hgb 10.2 g/dl and postoperative Hgb at 7.5 g/dl. Pt clinically stable with stable vital signs. Ferrous gluconate bid planned for one month Home on POD#2 per pt request. RTO in 2 wk for planned postop appointment. - Physical Exam Vitals/I&O's: Vital Signs Temp Pulse Resp BP Pulse Ox 97.8 F 92 16 96/52 L 99 08/09/19 08:40 08/09/19 08:40 08/09/19 08:40 08/09/19 08:40 08/08/19 12:45 Oxygen Delivery Method Room Air Weight: 62.709 kg Body Mass Index (BMI) 28.8 Intake and Output for Last 24 Hours 08/07/19 08/08/19 08/09/19 23:59 23:59 22:59 Intake Total 5358.34 / 5858.34 500 / 500 Output Total 2025 / 2325 300 / 300 Balance 3333.34 / 3533.34 200 / 200 Laboratory Results 08/09/19 05:41: WBC 10.3, RBC 2.67 L, Hgb 7.5 L, Hct 23.6 L, MCV 88.4, MCH 28.1, MCHC 31.8 L, RDW Std Deviation 51.2 H, RDW Coeff of Kendall 15.9 H, Plt Count 302, MPV 9.3, Immature Gran % (Auto) 0.800, Neut % (Auto) 75.6 H, Lymph % (Auto) 12.0 L, [place] % (Auto) 9.2, Eos % (Auto) 1.7, Baso % (Auto) 0.7, Absolute Neuts (auto) 7.8 H, Absolute Lymphs (auto) 1.24, Nucleated RBC % 0 Current Medications Acetaminophen (Tylenol) 1,000 mg PO Q8H PRN PRN Reason: Pain Score 1-3/10 Last Admin: 08/08/19 12:21 Dose: 1,000 mg Documented by: Bisacodyl (Dulcolax) 10 mg RECTAL UD PRN PRN Reason: If no BM Ferrous Gluconate (Ferrous Gluconate) 324 mg PO BIDCM [facility] Last Admin: 08/09/19 08:35 Dose: 324 mg Documented by: Hydrocortisone (Hytone) 1 applic TOPICAL TID PRN PRN; Protocol PRN Reason: Discomfort Naloxone HCl 4 mg/ Dextrose 504 mls @ 0 mls/hr IV .Q0M PRN; Protocol PRN Reason: Respiratory depression Ibuprofen (Motrin) 600 mg PO Q6H PRN PRN PRN Reason: Pain Score 1-3/10 Methylergonovine Maleate (Methergine) 0.2 mg IM X1 PRN PRN Reason: Uterine Atony Last Admin: 08/07/19 08:35 Dose: 0.2 mg Documented by: Naloxone HCl (Narcan) 0.02 mg IV Q1M PRN PRN Reason: RR <10 and pt unresponsive Ondansetron HCl (Zofran) 4 mg IV Q4H PRN PRN PRN Reason: Nausea Oxycodone HCl (Oxyir) 5 - 10 mg PO Q4H PRN PRN PRN Reason: Pain Score 4-10/10 Last Admin: 08/09/19 01:59 EST Dose: 5 mg Documented by: Prochlorperazine Edisylate (Compazine Iv) 10 mg IV Q6H PRN PRN PRN Reason: NAUSEA Last Admin: 08/07/19 09:22 Dose: 10 mg Documented by: Senna/Docusate Sodium (Senokot-S, Honey-Colace) 0 tablet PO DAILY PRN PRN Reason: Constipation Last Admin: 08/08/19 14:52 Dose: 1 tablet Documented by: Simethicone (Mylicon) 80 mg PO PCHS PRN PRN Reason: Indigestion/stomach pain Last Admin: 08/08/19 17:05 Dose: 80 mg Documented by: Sodium Chloride () 5 - 15 ml IV UD PRN PRN Reason: SALINE FLUSH Last Admin: 08/09/19 08:35 Dose: 10 ml Documented by: Zolpidem Tartrate (Ambien (Generic)) 5 mg ORAL QHS PRN PRN PRN Reason: Insomnia Discharge Diet: No Restrictions Discharge Activity: May Shower, May Take a Tub Bath Return to work on:: 10/05/19 May resume sexual activity in: 4-6 weeks Additional Activity Instructions:: Nothing in the vagina for 4-6 weeks. You may return to work/school in 6 weeks. Change Dressing in (Days):: 14 Remove Dressing in (days):: 14 Home Medications: Medications to take at Discharge Docusate Sodium [Colace] 100 mg PO BID #30 cap 08/07/19 Ibuprofen [Ibu] 600 mg PO Q6H PRN PRN #30 tab 08/07/19 Iron 65 mg PO BID 08/07/19 Oxycodone [Oxyir] 5 mg PO Q6H PRN PRN 4 Days #15 tab 08/07/19 Pnv No.103/Folic/Om3s/Fish Oil [ Gummies] 2 gum PO BID 08/07/19 Ferrous Gluconate 325 mg PO BIDCM #60 tab 08/08/19 Following Prescrptions Were Given to Patient: Docusate Sodium [Colace] 100 mg PO BID #30 cap Transmission Status: Received by [facility] Ferrous Gluconate 325 mg PO BIDCM #60 tab Transmission Status: Received by [facility] Ibuprofen [Ibu] 600 mg PO Q6H PRN PRN #30 tab PRN Reason: Pain Score 4-5/10 Transmission Status: Received by [facility] Oxycodone [Oxyir] 5 mg PO Q6H PRN PRN 4 Days #15 tab PRN Reason: Mod-Severe Pain (4-10/10) Transmission Status: Received by [facility] Please Follow Up With: Devin Lundy MD - [phone] When: Call to make an appointment for an incision check in 2 weeks. Medical Necessity - Tobacco Use Smoking Status: Never smoker Meaningful Use Info Meaningful Use Diagnoses (Choose all that apply): None applicable
[2019-08-09 14:00] VITALS: BP 104/54; PULSE 103; RESP 16; TEMP 36.8
[2019-08-09] MEDS: Ibuprofen 600 MG Tablet PO (14:56)
== END 2019-08-09 16:00 | disposition home or self-care (01) | DRG 787 ==
PROVIDERS: Anesthesiology; Obstetrics & Gynecology; Admitting Provider Obstetrics & Gynecology; Referring Provider Obstetrics & Gynecology; Visit Provider Obstetrics & Gynecology
PROC: (CPT 59514; principal; 2019-08-07 07:15)
DX: O34.211 Maternal care for low transverse scar from previous cesarean delivery (principal); O72.1 Other immediate postpartum hemorrhage; D62 Acute posthemorrhagic anemia; O99.02 Anemia complicating childbirth; D50.9 Iron deficiency anemia, unspecified; Z3A.39 39 weeks gestation of pregnancy; Z37.0 Single live birth; O90.81 Anemia of the puerperium
CPT/HCPCS: 85025; 85027; 85610; 85730; 86850; 86900; 86901; 94762; 99218; J7120; A4216; G0378; J2405

== ENCOUNTER → 2020-10-12 14:00 | Outpatient (CLI) | payer OTHER, SELFPAY ==
[2019-08-07 05:44] VITALS: BMI 28.8
[2020-10-17 18:45] LABS: HPV Reflexed? NOT INDICATED
== END ==
PROVIDERS: Visit Provider Obstetrics & Gynecology
DX: Z12.4 Encounter for screening for malignant neoplasm of cervix (principal)
CPT/HCPCS: 88175; G0145

== ENCOUNTER → 2023-03-25 | Outpatient (CLI) | payer OTHER, SELFPAY ==
--- NOTE | 2023-03-25 17:22 | MRI_ITS ---
STUDY: MRI BRAIN WITHOUT CONTRAST REASON FOR EXAM: Female, 38 years old. R Vision changes, possible MSR eye pressure TECHNIQUE: Standardized multiplanar fat and water weighted pulse sequences were obtained. COMPARISON: None. FINDINGS: Normal size of the ventricles and extra-axial spaces for the patient''s age. Normal white matter tracts of the supratentorial brain. Normal bilateral basal ganglia. Normal thalami. There is no extra-axial fluid accumulation. Normal flow voids within the major intracranial circulation suggesting patency by spin echo criteria. Normal sella turcica, pituitary gland, infundibular stalk, optic chiasm and hypothalamus. Normal tectal plate and pineal gland. Normal midbrain, laura and medulla. Normal cerebellum. Normal basal cisterns. Normal bilateral temporal bones. Normal bilateral internal auditory canals. No demonstrated orbital abnormality, within the constraints of a routine brain study. Normal visualized paranasal sinuses. Normal calvarium and skull base. Normal visualized soft tissue structures. Normal visualized upper cervical spine. MRI/Brain without Contrast IMPRESSION: Normal unenhanced MRI of the brain. Electronically Signed: Ger Collins MD at 16:17 EDT Reading Location ID and State: [facility] / [place] , Service support ,
== END | disposition home or self-care (01) ==
LOC: MRI 17:06
PROVIDERS: PCP Internal Medicine; Referring Provider Internal Medicine; Visit Provider Internal Medicine
DX: D64.9 Anemia, unspecified (principal)
CPT/HCPCS: 70551